=== PATIENT | male | born 1955 | race African-American/Black ===

== ENCOUNTER → 2016-12-22 | Outpatient (CLI) | payer MEDICARE, MEDICAID ==
[~2016-12-22] MED LIST: ACETAZOLAMIDE PO; AMLO1CAP PO; BENZ2TAB7 PO; BIMA2.5D4 EACHEYE; DORZ10DR7 EACHEYE; ESOM40CA PO; HALO10TA13 PO; METO-300 PO; ROSU40TA PO
[2016-12-22 11:31] LABS: BG BASE EXCESS -3.1 mmol/L (-2.0-2.0); BG CARBOXYHEMOGLOBIN 1.1 % (0.5-1.5); BG DEOXYHEMOGLOBIN 4.6 % (0.0-5.0); BG FRACTION INSPIRED OXYGEN 21; BG METHEMOGLOBIN 0.3 % (0.0-1.5); BG OXYGEN SATURATION 95.3 % (92.0-98.5); BG PCO2 39.4 mmHg (35.0-45.0); BG PH 7.364 (7.350-7.450); BG PO2 80.3 mmHg (75.0-100.0); BG SAMPLE SITE LEFT BRACHIAL; BG TOTAL HEMOGLOBIN 14.6 g/dL (12.0-18.0); BG VENT MODE ROOM AIR
== END | disposition home or self-care (01) ==
LOC: PF 10:44
PROVIDERS: ATTEND Internal Medicine Pulmonary Disease
DX: J44.9 Chronic obstructive pulmonary disease, unspecified (principal); J96.90 Respiratory failure, unspecified, unspecified whether with hypoxia or hypercapnia
CPT/HCPCS: 36600; 82375; 82805

== ENCOUNTER → 2021-04-30 | Outpatient (CLI) | payer MEDICARE, MEDICAID ==
[~2021-04-30] MED LIST changes: -DORZ10DR7 EACHEYE; +DORZ10DR8 EACHEYE; -METO-300 PO; +METO-411 PO
== END | disposition home or self-care (01) ==
LOC: PF 10:03
PROVIDERS: ATTEND Internal Medicine Pulmonary Disease
DX: J96.11 Chronic respiratory failure with hypoxia (principal); J44.9 Chronic obstructive pulmonary disease, unspecified; F17.290 Nicotine dependence, other tobacco product, uncomplicated; Z20.822 Contact with and (suspected) exposure to COVID-19
CPT/HCPCS: 87426; 94010; 94727; 94729

== ENCOUNTER 2023-04-11 11:19 | Emergency (ER) | payer MEDICAID, MEDICARE ==
[~2023-04-11] VITALS: Ht 172.7 cm; Wt 84.3 kg
[~2023-04-11 11:19] MED LIST changes: +BENZ2TAB65 PO; -BENZ2TAB7 PO
[2023-04-11 11:22] VITALS: O2SAT 95
[2023-04-11 11:29] VITALS: BP 165/66; PULSE 96; RESP 18; TEMP 98.3
[2023-04-11 15:11] LABS: BASOPHILS % 0.8 % (0.0-2.0); HEMOGLOBIN. 15.8 g/dL (14.0-18.0); LYMPHOCYTES % 29.1 % (20.0-50.0); MEAN CORPUSCULAR HEMOGLOBIN 30.6 pg (28.0-32.0); MEAN CORPUSCULAR HGB CONC 34.4 g/dL (31.0-37.0); MEAN PLATELET VOLUME 6.7 fl (7.4-10.4); MONOCYTES % 11.9 % (2.0-8.0); NEUTROPHILS % 55.2 % (40.0-76.0); PLATELET 261 x1000/uL (130-400); RED BLOOD CELL COUNT 5.16 mill/uL (4.7-6.1); WHITE BLOOD COUNT 5.2 x1000/uL (4.5-11.0)
[2023-04-11 15:20] LABS: CHLORIDE 100 mEq/L (98-107); INDEX HEMOLYSI 1 (1-3); INDEX ICTERIC 1 (1-4); INDEX LIPEMIC 1 (1-3); POTASSIUM 3.4 mEq/L (3.5-5.1); SODIUM 132 mEq/L (136-145)
[2023-04-11 15:31] LABS: ALANINE AMINOTRANSFERASE 33 IU/L (13-61); ASPARTATE AMINOTRANSFERASE 21 IU/L (15-37); BILIRUBIN TOTAL 0.7 mg/dL (0.1-1.0); CALCIUM 9.3 mg/dL (8.5-10.1); CARBON DIOXIDE 25 mEq/L (21-32); CREATININE 0.6 mg/dL (0.6-1.3); GLUCOSE 119 mg/dL (70-105); NT PRO B-TYPE NATRIURETIC PEP 50 pg/mL (5-125); PROTEIN TOTAL 7.9 g/dL (6.0-8.3); UREA NITROGEN BLOOD 18 mg/dL (7-21)
== END 2023-04-11 18:03 | disposition left against medical advice (07) ==
LOC: ER 11:19
DX: R07.89 Other chest pain (principal); I10 Essential (primary) hypertension; Z79.899 Other long term (current) drug therapy; Z00.00 Encounter for general adult medical examination without abnormal findings
CPT/HCPCS: 36415; 71045; 80053; 83880; 85025; 93005; 99285